=== PATIENT | male | born 1960 | race Caucasian/White ===

== ENCOUNTER 2018-06-02 11:36 | Inpatient (IN) | payer MEDICARE ==
[~2018-06-02] VITALS: Ht 185.4 cm; Wt 140.2 kg
--- NOTE | ~2018-06-02 | D ---
[facility] [address] [place] [address] DISCHARGE SUMMARY Name: ELIANE GARCIA Room: [address] IN ..#: [id number] Admission: 06/02/18 Attend Phys: Kelsie Adrian DO Discharge: 06/29/18 Date of : 62 Report #: [id number] THIS REPORT FOR: //name// CC: Kelsie Adrian Nixon Augustine DATE OF SERVICE: 06/29/2018 DISCHARGE DIAGNOSES: Right foot reconstruction with postoperative wounds and chronic nonhealing acute on chronic wounds with known left below knee amputation. HOSPITAL COURSE: This is a 57-year-old male who was acutely and nonemergently transferred after outpatient wound care appointment with Dr. Mckeon. He will be followed by Dr. Mckeon and Medicine at . Full code status. Fair rehabilitation prognosis. He did make gains during his entire stay here. He did not have plateau. Diabetic diet. Follow with primary care physician, Vascular and Surgery as previously stated. MEDICATIONS: Not reviewed and reconciled by myself prior to his discharge for his appointment and admission to ; however, they are familiar with him. DISCHARGE PHYSICAL EXAMINATION: He did go to his appointment early this morning and was admitted from to their inpatient unit. We will follow with the patient. Should he have further acute inpatient rehabilitation needs, we would be more than happy to take him back once he is medically stable. By: 1430 [id number] Adrian DO /hari
[~2018-06-02 11:36] MED LIST: ACCU-CHEK1 EAC1 MC; ACETAMINOPHEN650 M5; ACTOS 45 MG45 M1 PO; ALBUTEROL2.5 MG/31 INH; ALFALFA650 MG PO; ASPIR 8181 M1 PO; ASPIR-TRIN325 MG PO; ATORVASTATIN CA40 MG PO; AUGMENTIN 875875 MG PO; AZITHROMYCIN 2250 MG PO; B-122500 MC1 PO; BAYER CHEWABLE81 MG PO; BRILINTA90 MG PO; BYETTA; CALCIUM 500 +1 EAC5 PO; CALCIUM 500 WI1 EAC4 PO; CALCIUM 600 +1 EAC1 PO; CEFAZOLIN 1GM VI1 G1; CEPHALEXIN 500500 M2 PO; CIPROFLOXACIN500 M1 PO; CLEOCIN HCL300 MG PO; COLACE100 MG PO; COUMADIN 5 MG TA5 M1 PO; COUMADIN7.5 MG PO; CRANBERRY PLUS1 EACH PO; DIAPER RASH OI113 GM TP; DILANTIN100 MG PO; DOXYCYCLINE 10100 MG PO; ELIQUIS2.5 MG PO; ELIQUIS5 MG PO; ENOXAPARIN30 MG/0.3 SUBQ; FISH OIL 1,001000 M2 PO; GLIPIZIDE ER10 MG PO; GLUCOPHAGE; GLUCOPHAGE500 MG PO; GLUCOTROL5 MG PO; IBUPROFEN 200200 M1 PO; IRON325 PO; KEFLEX500 M1 PO; KEPPRA 500 MG500 M1 PO; LANTUS SUBQ; LANTUS100 UNIT/M SUBQ; LEVAQUIN 500 M500 M2 PO; LEVAQUIN 750 M750 MG PO; LISINOPRIL5 MG PO; METAMUCIL PAC1 UDPK1; MEVACOR40 MG PO; MINOCIN100 MG; MINOCYCLINE HC100 M2 PO; MIRALAX255 GM PO; MULTIVITAMINS PO; NITROGLYCERIN0.4 MG SUBLING; NOVOLOG100 UNIT/1 SQ; OXYCODONE HCL5 M1 PO; PERCOCET 10-321 EACH PO; PIPERACIL-TAZO4.5 GM IV; PREDNISONE 10 M10 MG PO; PREDNISONE 20 M20 MG PO; PROAIR HFA8.5 GM INH; PROBIOTIC1 EAC1 PO; ROCEPHIN 11 GM/1001 IV; SIMVASTATIN40 MG PO; SIMVASTATIN80 MG PO; TAMSULOSIN HCL0.4 M1 PO; ULTRAM 50MG TAB50 MG PO; VIT D3 PO; VITAMINC500 PO; ZESTRIL5 MG PO; ZINC50 M1 PO; ZOFRAN4 MG PO
[2018-06-02 14:47] VITALS: BP 116/68
[2018-06-02] MEDS ORDERED: VITAMIN D1000 UNI1 PO (14:54)
[2018-06-02] MEDS ORDERED: LANTUS SUBQ (15:06)
[2018-06-02] MEDS ORDERED: ENOXAPARIN40 MG/0.1 SUBQ (15:07)
[2018-06-02] MEDS ORDERED: ZINC50 M1 PO (15:28)
[2018-06-02] MEDS ORDERED: NITROGLYCERIN0.4 MG PO (15:31)
[2018-06-02] MEDS ORDERED: ADMELOG100 UNIT/1 SQ (15:33)
[2018-06-02] MEDS ORDERED: OXYCODONE HCL 55 MG PO (15:36)
[2018-06-02] MEDS ORDERED: CLOTRIMAZOLE 1%15 G1 TOP (15:42)
[2018-06-02] MEDS ORDERED: BACTRIM DS TAB1 EACH PO (15:44)
[2018-06-02 21:05] VITALS: BP 93/57
[2018-06-03 05:26] LABS: ABSOLUTE EOSINOPHILS 0.2 thou/uL (0.0-0.7); ABSOLUTE LYMPHOCYTES 1.2 thou/uL (0.8-5.3); ABSOLUTE MONOCYTES 1.1 thou/uL (0.0-1.2); ABSOLUTE NEUTROPHILS 8.2 thou/uL (1.6-8.1); BASOPHILS 0.5 %; EOSINOPHILS 1.6 %; HEMATOCRIT 30.3 % (42.0-52.0); HEMOGLOBIN 10.3 gm/dL (14.0-18.0); LYMPHOCYTES 11.6 %; MCH 30.8 pg (26.0-34.0); MCV 90.6 fL (80.0-100.0); MONOCYTES 9.9 %; MPV 8.6 fl. (7.2-11.1); NUCLEATED RBCS 0 /100WBC; PLATELET COUNT* 413 thou/uL (150-400); POLYS 76.4 %; RBC 3.34 mil/uL (4.50-6.00); RDW-CV 13.7 % (10.5-14.5); WBC 10.7 thou/uL (4.0-11.0)
[2018-06-03 05:42] LABS: INR 1.2; PROTIME 12.1 Seconds (9.20-11.50)
[2018-06-03 05:52] LABS: CREATININE 1.3 mg/dL (0.6-1.3); POTASSIUM 5.2 mmol/L (3.5-5.1)
[2018-06-03 08:00] VITALS: BP 93/49
[2018-06-03 20:00] VITALS: BP 101/38
[2018-06-04 04:31] LABS: CALCIUM 9.7 mg/dL (8.5-10.1); CREATININE 1.3 mg/dL (0.6-1.3); POTASSIUM 5.1 mmol/L (3.5-5.1)
[2018-06-04 04:32] LABS: INR 1.3; PROTIME 13.4 Seconds (9.20-11.50)
[2018-06-04 08:00] VITALS: BP 113/65
[2018-06-04 20:00] VITALS: BP 93/60
[2018-06-05 04:57] LABS: INR 1.2; PROTIME 12.7 Seconds (9.20-11.50)
[2018-06-05 07:30] VITALS: BP 114/45
[2018-06-05 19:19] VITALS: BP 102/67
[2018-06-06 04:06] LABS: HEMOGLOBIN 10.5 gm/dL (14.0-18.0); MCH 29.3 pg (26.0-34.0); MCHC 32.8 g/dL (28.0-37.0); MCV 89.3 fL (80.0-100.0); MPV 8.4 fl. (7.2-11.1); RBC 3.58 mil/uL (4.50-6.00); RDW-CV 13.8 % (10.5-14.5); WBC 9.8 thou/uL (4.0-11.0)
[2018-06-06 04:21] LABS: INR 1.6; PROTIME 15.9 Seconds (9.20-11.50)
[2018-06-06 04:25] LABS: CALCIUM 9.3 mg/dL (8.5-10.1); CREATININE 1.2 mg/dL (0.6-1.3); MAGNESIUM 1.7 mg/dL (1.8-2.4); POTASSIUM 4.8 mmol/L (3.5-5.1)
[2018-06-06 07:58] VITALS: BP 111/57
--- NOTE | 2018-06-06 08:00 | CON ---
[address] [address] CONSULTATION Name: ELIANE GARCIA Room: [address] IN .R.#: [id number] Admission: 06/02/18 Attend Phys: Kelsie Adrian DO Discharge: Date of : 62 Report #: [id number] THIS REPORT FOR: //name// CC: Kelsie Adrian Nixon Augsutine DATE OF SERVICE: 06/05/2018 INFECTIOUS DISEASE CONSULTATION ATTENDING PHYSICIAN: Dr. Kelsie Adrian. REASON FOR EVALUATION AND HISTORY OF PRESENT ILLNESS: Ongoing treatment for complications related to diabetes mellitus. He has had previous left below-knee amputation due to infectious complications, recently had undergone corrective procedure of a Charcot foot with triple arthrodesis and posterior tibial tendon transfer on 05/26/2018. Postoperative course was complicated by a fall requiring repeat due to screw migration and penetration to the tibiotalar joint. He was taken back on 05/31/2018 and after 48 hours, was transitioned to rehab facility. Of note, he has longstanding mid lateral ulcers with suspected chronic osteomyelitis. He has been on chronic suppressive therapy with trimethoprim and sulfamethoxazole. He notes generally, he is not feeling as well. He attributes some in part to the anesthetic with somewhat of a diminished appetite, some poor p.o. intake. He does describe some breathing difficulties with cough productive of some whitish sputum as well. He has been afebrile. ALLERGIES: None known. MEDICATIONS: Currently include folic acid, ondansetron, warfarin, ferrous sulfate, insulin, enoxaparin, senna, docusate, hydrocodone, Lactobacillus, ascorbic acid, cholecalciferol, lisinopril, atorvastatin, fish oil, Bactrim, cyanocobalamin, aspirin, insulin glargine and insulin lispro, levetiracetam, ipratropium and albuterol inhaler, metformin. PAST MEDICAL HISTORY: As noted above, diabetes mellitus with significant complications, below-knee amputation on the left, Charcot changes and has undergone operative repair, history of asthma, hypertension, obstructive sleep apnea, seizure disorder, hyperlipidemia, history of DVTs with PEs. SOCIAL HISTORY: Nonsmoker, no ethanol, no illicit drug use. FAMILY HISTORY: Noncontributory. REVIEW OF SYSTEMS: Otherwise unremarkable 10-point review of systems with the exception as noted [place] [address] CONSULTATION Name: JOSEELIANE L Room: [address]#: [id number] Admission: 06/02/18 Attend Phys: Kelsie Adrian DO Discharge: Date of : 62 Report #: [id number] PHYSICAL EXAMINATION: GENERAL: He appears somewhat chronically ill. He is pleasant and cooperative. He is not as animated as typical, reasonably well nourished. VITAL SIGNS: Temperature 98.7, pulse 77, respirations 18, blood pressure 114/45. SKIN: Warm, dry, no rashes. HEENT: Extraocular muscles intact. Oropharynx is without lesion. NECK: Supple. LUNGS: Diminished breath sounds, otherwise clear. HEART: Regular. I do not appreciate any murmur. ABDOMEN: Soft, obese, nontender. There are no peritoneal signs. EXTREMITIES: [id number] prosthesis on the left. Right has a surgical dressing that apparently has been there since 05/31/2018. GENITOURINARY: Deferred. RECTAL: Deferred. LABORATORY DATA: Chest x-ray showed lung volumes to be diminished and left lower lung atelectasis. TSH of 1.083. Electrolytes: Sodium 134, potassium 5.1, chloride 96, bicarbonate is 31, anion gap of 7, BUN and creatinine 35 and 1.3, glucose of 250. Estimated GFR of 57. CBC: White count of 10.7, H and H 10.3 and 30.3, platelets of 413. ASSESSMENT: Diabetes mellitus complicated by peripheral neuropathy, Charcot changes with recent corrective surgery. We will not be able to see the foot at this point. It is not certain whether the wounds were debrided. At some point, I would be able to evaluate. Discussed with Dr. Beavers, orthopedic surgeon. At this point, we will not disrupt the surgical dressing. We will have to monitor expectantly, certainly at risk for nosocomial related infectious complications. <ELECTRONICALLY SIGNED> By: Med Lopez MD 06/06/18 0800 1206 [id number] Lopez MD /nt
[2018-06-06 20:17] VITALS: BP 124/48
[2018-06-07 04:54] LABS: PROTIME 20.4 Seconds (9.20-11.50)
[2018-06-07 07:30] VITALS: BP 111/69
[2018-06-07] MEDS ORDERED: COUMADIN 4 MG TA4 M1 PO (11:13)
[2018-06-07 20:18] VITALS: BP 109/68
[2018-06-08 04:31] LABS: INR 2.4; PROTIME 24.4 Seconds (9.20-11.50)
[2018-06-08 04:38] LABS: CALCIUM 9.1 mg/dL (8.5-10.1); MAGNESIUM 1.9 mg/dL (1.8-2.4); POTASSIUM 5.3 mmol/L (3.5-5.1)
[2018-06-08 20:09] VITALS: BP 88/54
[2018-06-08 21:39] VITALS: BP 94/53
[2018-06-09 11:00] VITALS: BP 135/61
[2018-06-09 20:00] VITALS: BP 117/67
[2018-06-10 04:19] LABS: PROTIME 30.7 Seconds (9.20-11.50)
[2018-06-10 08:12] VITALS: BP 121/65
[2018-06-10 19:07] VITALS: BP 121/67
[2018-06-11 05:01] LABS: HEMATOCRIT 30.8 % (42.0-52.0); HEMOGLOBIN 10.2 gm/dL (14.0-18.0); MCH 29.1 pg (26.0-34.0); MCHC 33.1 g/dL (28.0-37.0); MCV 87.7 fL (80.0-100.0); MPV 8.3 fl. (7.2-11.1); RBC 3.51 mil/uL (4.50-6.00); RDW-CV 14.3 % (10.5-14.5)
[2018-06-11 05:14] LABS: INR 3.2; PROTIME 32.6 Seconds (9.20-11.50)
[2018-06-11 05:15] LABS: CALCIUM 8.6 mg/dL (8.5-10.1); CREATININE 0.9 mg/dL (0.6-1.3)
[2018-06-11 08:13] VITALS: BP 126/57
[2018-06-11 08:15] VITALS: BP 126/57
[2018-06-11 20:00] VITALS: BP 109/67
[2018-06-12 04:37] LABS: INR 3.1; PROTIME 31.5 Seconds (9.20-11.50)
[2018-06-12 08:00] VITALS: BP 117/61
[2018-06-12 20:30] VITALS: BP 121/55
[2018-06-13 03:55] LABS: INR 2.6; PROTIME 26.1 Seconds (9.20-11.50)
[2018-06-13 08:00] VITALS: BP 111/69
[2018-06-13 20:00] VITALS: BP 114/51
[2018-06-14 04:22] LABS: INR 2.7; PROTIME 27.7 Seconds (9.20-11.50)
[2018-06-14 08:00] VITALS: BP 118/60
[2018-06-14 20:00] VITALS: BP 91/44
[2018-06-15 04:34] LABS: INR 2.7; PROTIME 27.9 Seconds (9.20-11.50)
[2018-06-15 04:37] LABS: HEMATOCRIT 30.1 % (42.0-52.0); HEMOGLOBIN 10.3 gm/dL (14.0-18.0); MCHC 34.1 g/dL (28.0-37.0); MPV 8.4 fl. (7.2-11.1); RBC 3.42 mil/uL (4.50-6.00); RDW-CV 14.4 % (10.5-14.5); WBC 7.8 thou/uL (4.0-11.0)
[2018-06-15 04:38] LABS: CALCIUM 8.8 mg/dL (8.5-10.1); POTASSIUM 4.4 mmol/L (3.5-5.1)
[2018-06-15 08:00] VITALS: BP 110/69
[2018-06-15 20:00] VITALS: BP 112/63
[2018-06-16 04:15] LABS: INR 2.9; PROTIME 29.6 Seconds (9.20-11.50)
[2018-06-16 08:29] VITALS: BP 114/56
[2018-06-16 20:08] VITALS: BP 121/63
[2018-06-17 04:30] LABS: INR 2.7; PROTIME 27.7 Seconds (9.20-11.50)
[2018-06-17 07:00] VITALS: BP 131/58
[2018-06-17 07:57] VITALS: BP 131/58
[2018-06-17 20:00] VITALS: BP 118/76
[2018-06-18 08:00] VITALS: BP 132/80
[2018-06-18 20:00] VITALS: BP 116/59
[2018-06-19 08:30] VITALS: BP 144/72
[2018-06-19 20:00] VITALS: BP 115/63
[2018-06-20 07:45] VITALS: BP 142/80
[2018-06-20 20:00] VITALS: BP 116/68
[2018-06-21 04:27] LABS: HEMATOCRIT 29.4 % (42.0-52.0); HEMOGLOBIN 9.9 gm/dL (14.0-18.0); MCH 29.5 pg (26.0-34.0); MCHC 33.7 g/dL (28.0-37.0); MCV 87.5 fL (80.0-100.0); MPV 8.2 fl. (7.2-11.1); RBC 3.36 mil/uL (4.50-6.00); RDW-CV 14.4 % (10.5-14.5); WBC 6.7 thou/uL (4.0-11.0)
[2018-06-21 04:35] LABS: INR 2.1; PROTIME 21.2 Seconds (9.20-11.50)
[2018-06-21 04:37] LABS: CALCIUM 8.5 mg/dL (8.5-10.1); MAGNESIUM 1.6 mg/dL (1.8-2.4)
[2018-06-21 08:26] VITALS: BP 126/69
[2018-06-21 19:55] VITALS: BP 99/60
[2018-06-22 07:59] VITALS: BP 128/73
[2018-06-22 17:08] VITALS: BP 128/73
[2018-06-22 20:17] VITALS: BP 106/63
[2018-06-22 20:32] VITALS: BP 100/58
[2018-06-23 07:00] VITALS: BP 131/70
[2018-06-23 07:54] VITALS: BP 131/70
[2018-06-23 08:22] LABS: PROTIME 20.4 Seconds (9.20-11.50)
[2018-06-23 20:15] VITALS: BP 108/54
[2018-06-24 07:30] VITALS: BP 119/51
[2018-06-24 20:00] VITALS: BP 126/60
[2018-06-25 08:30] VITALS: BP 139/77
[2018-06-25 20:00] VITALS: BP 144/75
[2018-06-26 06:55] LABS: HEMATOCRIT 28.7 % (42.0-52.0); HEMOGLOBIN 9.3 gm/dL (14.0-18.0); MCH 28.4 pg (26.0-34.0); MCHC 32.4 g/dL (28.0-37.0); MCV 87.5 fL (80.0-100.0); RBC 3.28 mil/uL (4.50-6.00); RDW-CV 15.2 % (10.5-14.5); WBC 5.9 thou/uL (4.0-11.0)
[2018-06-26 07:00] LABS: CALCIUM 8.9 mg/dL (8.5-10.1); CREATININE 1.5 mg/dL (0.6-1.3); MAGNESIUM 1.6 mg/dL (1.8-2.4); POTASSIUM 4.1 mmol/L (3.5-5.1)
[2018-06-26 07:02] LABS: PROTIME 20.4 Seconds (9.20-11.50)
[2018-06-26 08:00] VITALS: BP 154/83
[2018-06-26 20:00] VITALS: BP 132/63
[2018-06-27 04:56] LABS: PROTIME 20.8 Seconds (9.20-11.50)
[2018-06-27 05:49] LABS: CALCIUM 8.8 mg/dL (8.5-10.1); CREATININE 1.6 mg/dL (0.6-1.3); MAGNESIUM 1.6 mg/dL (1.8-2.4); POTASSIUM 3.9 mmol/L (3.5-5.1)
[2018-06-27 07:57] VITALS: BP 154/76
[2018-06-27 21:18] VITALS: BP 136/77
[2018-06-28 06:07] LABS: HEMATOCRIT 30.4 % (42.0-52.0); HEMOGLOBIN 9.7 gm/dL (14.0-18.0); MCH 27.8 pg (26.0-34.0); MCHC 31.9 g/dL (28.0-37.0); MPV 8.3 fl. (7.2-11.1); RBC 3.5 mil/uL (4.50-6.00); RDW-CV 14.8 % (10.5-14.5); WBC 5.9 thou/uL (4.0-11.0)
[2018-06-28 06:46] LABS: ALBUMIN 2.1 g/dL (3.4-5.0); CALCIUM 8.7 mg/dL (8.5-10.1); CREATININE 1.6 mg/dL (0.6-1.3); MAGNESIUM 1.7 mg/dL (1.8-2.4); POTASSIUM 4.3 mmol/L (3.5-5.1); TOTAL BILIRUBIN 0.3 mg/dL (<0.1-1.0); TOTAL PROTEIN 6.8 g/dL (6.4-8.2)
[2018-06-28 09:18] VITALS: BP 133/72
--- NOTE | 2018-06-28 14:18 | H ---
[address] [address] HISTORY AND PHYSICAL Name: ELIANE GARCIA Room: [address] IN ..#: [id number] Admission: 06/02/18 Attend Phys: Kelsie Adrian DO Discharge: Date of : 62 Report #: [id number] THIS REPORT FOR: //name// CC: Kelsie Dominguezew Augustine DATE OF SERVICE: 06/02/2018 [facility] CODE: 8.9. HISTORY OF PRESENT ILLNESS: This is a 57-year-old male known to this service from previous admission in 2013 with a history of uncontrolled diabetes with a random glucose of 265, who presented [facility] on 05/26/2018 for right foot surgical intervention for Charcot foot, right triple arthrodesis and posterior tendon transfer. He was discharged home on 05/28/2018, nonweightbearing on right lower extremity. On 05/29/2018, he presented back to the ER at [facility] post fall at home where he landed on his right surgical foot. X-ray showed slight screw migration and penetration into the tibiotalar. He was then taken back to the OR on 05/31/2018. He is currently medically stable, nonweightbearing on the right lower extremity. He does have prosthesis for the left BKA. No changes since the preadmission screening. Previous level of function was modified independent to independent with activities of daily living. Current level of function is minimum assistance of 1-2 to maximum assistance depending on therapy, activity and time of day. Comprehension, memory and social interaction are within functional limits. Estimated length of stay is 12-14 days with discharge disposition to the home setting where he does have a and accessible house, but his is unable to help with transfers due to her medical complications and issues. PAST MEDICAL HISTORY: Hypertension, hyperlipidemia, coronary artery disease, history of PE, DVT, uncontrolled diabetes, insulin-dependency, diabetic peripheral neuropathy, morbid obesity, right Charcot foot status post surgical intervention x 2, left BKA with prosthesis, seizures, debility, falls, anemia with a hemoglobin of 10.6, chronic anticoagulation, constipation, diabetic lower extremity ulcers, asthma, on BiPAP, O2 dependency 4 liters at night. PAST SURGICAL HISTORY: Left BKA, tonsillectomy, lap-band, coronary stent, and a foot surgery bilaterally and most recently right lower extremity x 2. MEDICATIONS: Reviewed and reconciled by myself and are available in the MAR. ALLERGIES: No known drug allergies. SOCIAL HISTORY: No tobacco, alcohol or illicit drug use. FAMILY HISTORY: [place] [address] HISTORY AND PHYSICAL Name: JOSEELIANE L Room: [address] IN [facility].#: [id number] Admission: 06/02/18 Attend Phys: Kelsie Adrian DO Discharge: Date of : 62 Report #: [id number] REVIEW OF SYSTEMS: A 14-point review of systems is done today, is negative except as mentioned in HPI, specifically no fever, chest pain, shortness of breath, abdominal pain or distention, change in bowel or change in bladder. PHYSICAL EXAMINATION: GENERAL: Alert, oriented, no apparent distress. VITAL SIGNS: Reviewed and are stable. HEENT: Head atraumatic, normocephalic. Pupils equal, round, reactive. O2 per nasal cannula is in place. NECK: Supple. HEART: Regular. ABDOMEN: Obese. LOWER EXTREMITY AND MUSCULOSKELETAL: Left BKA is intact. Right lower extremity, right Charcot foot. Surgical foot is freshly wrapped with an Bhaskar bandage in place. Wound was not visualized at this time. SKIN: Warm and dry. No rashes or lesions noted. PSYCHIATRIC: Appropriate mood and affect. ASSESSMENT: 1. Status post surgical intervention for reconstruction of the right lower extremity x 2 on 05/26/2018 and 05/31/2018 with nonweightbearing status. 2. Left below knee amputation from [address]. 3. Multiple medical comorbidities including uncontrolled diabetes with multiple complications including neuropathy. PLAN: 1. Admission to inpatient rehabilitation. 2. PT, OT, case management, nursing and HIMS to make evaluations and recommendations. 3. Plan of care is pending. 4. We will team weekly. 5. Medications were reviewed, pain controlled. 6. Trapeze has been ordered for his hospital bed. 7. Goals were reviewed with the patient, team weekly on Tuesday. <ELECTRONICALLY SIGNED> By: Kelsie Adrian DO 06/28/18 1418 0735 1000Kelnnamdi Adrian DO /nt
--- NOTE | 2018-06-28 14:18 | PLAN ---
[address] [address] REHAB UNIT PLAN OF CARE Name: ELIANE GARCIA Room: [address] IN [facility].#: [id number] Admission: 06/02/18 Attend Phys: Kelsie Adrian DO Discharge: Date of : 62 Report #: [id number] THIS REPORT FOR: //name// CC: Kelsie Bradshaw SUBJECTIVE: This is a 57-year-old male admitted to inpatient rehabilitation to facilitate safe discharge home, status post surgical intervention on 05/26/2018 and a revision on 05/31/2018 for right Charcot foot with triple arthrodesis and posterior tendon transfer. He also has a left BKA. He has a prosthetic in place. He is nonweightbearing on the right lower extremity. MEDICAL PROGNOSIS: Good. REHABILITATION PROGNOSIS: Good. Estimated length of stay is 12-14 days with discharge disposition to the home setting where he has supportive family, although she cannot help with transfers and an accessible house. Previous level of function was modified independent to independent with activities of daily living. Current level of function is minimum to moderate assistance of 1-2 to maximum assistance depending on therapy, activity and time of day. Comprehension, expression, social interaction are within functional limits. Physical therapy will see the patient 60-90 minutes per day, 5 days per week, working on upper and lower body strength, balance, coordination, navigation with nonweightbearing on the right lower extremity and BKA on the left with or without the prosthesis. Occupational therapy will see the patient 60-90 minutes per day, 5 days per week, working on upper and lower body strength, balance, coordination, navigation, bathing, dressing, and toileting while maintaining nonweightbearing on the right lower extremity and prosthetic with or without on the left lower extremity. This is an overall plan of care, may change from time to time. We will team him weekly and make changes to plan of care as needed. <ELECTRONICALLY SIGNED> By: Kelsie Adrian DO 06/28/18 1418 0737 [id number] Adrian DO /nt
[2018-06-28 19:52] VITALS: BP 128/68
[2018-06-29 06:45] VITALS: BP 157/68
[2018-06-29 08:28] LABS: HEMATOCRIT 30.5 % (42.0-52.0); HEMOGLOBIN 9.9 gm/dL (14.0-18.0); MCH 28.3 pg (26.0-34.0); MCHC 32.6 g/dL (28.0-37.0); MCV 86.7 fL (80.0-100.0); MPV 8.7 fl. (7.2-11.1); RBC 3.51 mil/uL (4.50-6.00); RDW-CV 14.9 % (10.5-14.5); WBC 6.4 thou/uL (4.0-11.0)
[2018-06-29 08:33] LABS: CALCIUM 8.9 mg/dL (8.5-10.1); CREATININE 1.4 mg/dL (0.6-1.3); MAGNESIUM 1.6 mg/dL (1.8-2.4); POTASSIUM 3.9 mmol/L (3.5-5.1)
== END 2018-06-29 12:56 | disposition short-term general hospital (02) | DRG 638 ==
LOC: M.REH 11:36
PROVIDERS: Family Medicine; Internal Medicine; ADMIT Physical Medicine & Rehabilitation
PROC: 5A09357 Assistance with Respiratory Ventilation, Less than 24 Consecutive Hours, Continuous Positive Airway Pressure (ICD-10-PCS; principal; 2018-06-02)
PROC: 5A09357 Assistance with Respiratory Ventilation, Less than 24 Consecutive Hours, Continuous Positive Airway Pressure (ICD-10-PCS; 2018-06-03)
PROC: 5A09357 Assistance with Respiratory Ventilation, Less than 24 Consecutive Hours, Continuous Positive Airway Pressure (ICD-10-PCS; 2018-06-07)
PROC: 5A09357 Assistance with Respiratory Ventilation, Less than 24 Consecutive Hours, Continuous Positive Airway Pressure (ICD-10-PCS; 2018-06-08)
PROC: 5A09357 Assistance with Respiratory Ventilation, Less than 24 Consecutive Hours, Continuous Positive Airway Pressure (ICD-10-PCS; 2018-06-10)
PROC: 5A09357 Assistance with Respiratory Ventilation, Less than 24 Consecutive Hours, Continuous Positive Airway Pressure (ICD-10-PCS; 2018-06-11)
PROC: 5A09357 Assistance with Respiratory Ventilation, Less than 24 Consecutive Hours, Continuous Positive Airway Pressure (ICD-10-PCS; 2018-06-12)
PROC: 5A09357 Assistance with Respiratory Ventilation, Less than 24 Consecutive Hours, Continuous Positive Airway Pressure (ICD-10-PCS; 2018-06-13)
PROC: 5A09357 Assistance with Respiratory Ventilation, Less than 24 Consecutive Hours, Continuous Positive Airway Pressure (ICD-10-PCS; 2018-06-14)
PROC: 5A09357 Assistance with Respiratory Ventilation, Less than 24 Consecutive Hours, Continuous Positive Airway Pressure (ICD-10-PCS; 2018-06-17)
PROC: 5A09357 Assistance with Respiratory Ventilation, Less than 24 Consecutive Hours, Continuous Positive Airway Pressure (ICD-10-PCS; 2018-06-18)
PROC: 5A09357 Assistance with Respiratory Ventilation, Less than 24 Consecutive Hours, Continuous Positive Airway Pressure (ICD-10-PCS; 2018-06-27)
DX: E11.628 Type 2 diabetes mellitus with other skin complications (principal); J96.10 Chronic respiratory failure, unspecified whether with hypoxia or hypercapnia; M86.671 Other chronic osteomyelitis, right ankle and foot; R53.81 Other malaise; N17.9 Acute kidney failure, unspecified; Z89.512 Acquired absence of left leg below knee; I10 Essential (primary) hypertension; E78.5 Hyperlipidemia, unspecified; I25.10 Atherosclerotic heart disease of native coronary artery without angina pectoris; E11.42 Type 2 diabetes mellitus with diabetic polyneuropathy; E66.01 Morbid (severe) obesity due to excess calories; G40.909 Epilepsy, unspecified, not intractable, without status epilepticus; J44.9 Chronic obstructive pulmonary disease, unspecified; G47.33 Obstructive sleep apnea (adult) (pediatric); D50.9 Iron deficiency anemia, unspecified; D63.8 Anemia in other chronic diseases classified elsewhere; D52.9 Folate deficiency anemia, unspecified; E11.610 Type 2 diabetes mellitus with diabetic neuropathic arthropathy; K59.00 Constipation, unspecified; E83.42 Hypomagnesemia; E11.69 Type 2 diabetes mellitus with other specified complication; L97.519 Non-pressure chronic ulcer of other part of right foot with unspecified severity; E11.621 Type 2 diabetes mellitus with foot ulcer; Z86.711 Personal history of pulmonary embolism; Z86.718 Personal history of other venous thrombosis and embolism; Z79.01 Long term (current) use of anticoagulants; Z99.81 Dependence on supplemental oxygen; Z95.5 Presence of coronary angioplasty implant and graft; Z82.49 Family history of ischemic heart disease and other diseases of the circulatory system; Z83.3 Family history of diabetes mellitus; Z79.899 Other long term (current) drug therapy; Z79.82 Long term (current) use of aspirin; Z79.4 Long term (current) use of insulin; Z79.84 Long term (current) use of oral hypoglycemic drugs; Z91.81 History of falling

== ENCOUNTER 2018-09-15 00:38 | Emergency (ER) | payer MEDICARE ==
[~2018-09-15] VITALS: Ht 185.4 cm; Wt 133.8 kg
[~2018-09-15 00:38] MED LIST changes: -AMOXICILLIN 50500 MG PO
[2018-09-15] MEDS ORDERED: AMOXICILLIN 50500 MG PO (00:53)
[2018-09-15 01:01] LABS: INR 1.2
[2018-09-15 01:31] VITALS: BP 110/59
== END 2018-09-15 01:31 | disposition home or self-care (01) ==
LOC: M.ERS 00:38
PROVIDERS: Emergency Medicine Emergency Medical Services
DX: S91.301A Unspecified open wound, right foot, initial encounter (principal); X58.XXXA Exposure to other specified factors, initial encounter; Y93.89 Activity, other specified; Y92.89 Other specified places as the place of occurrence of the external cause; Y99.8 Other external cause status; E11.9 Type 2 diabetes mellitus without complications; E78.5 Hyperlipidemia, unspecified; I10 Essential (primary) hypertension; J45.909 Unspecified asthma, uncomplicated; G47.33 Obstructive sleep apnea (adult) (pediatric); I25.10 Atherosclerotic heart disease of native coronary artery without angina pectoris; Z99.81 Dependence on supplemental oxygen

== ENCOUNTER → 2018-09-15 | Outpatient (CLI) | payer MEDICARE ==
[~2018-09-15] MED LIST changes: +ADMELOG100 UNIT/1 SQ; +AMOXICILLIN 50500 MG PO; +BACTRIM DS TAB1 EACH PO; +CLOTRIMAZOLE 1%15 G1 TOP; +COUMADIN 4 MG TA4 M1 PO; +ENOXAPARIN40 MG/0.1 SUBQ; +NITROGLYCERIN0.4 MG PO; +OXYCODONE HCL 55 MG PO; +VITAMIN D1000 UNI1 PO
[2018-09-15 11:29] LABS: HEMATOCRIT 32.5 % (42.0-52.0); HEMOGLOBIN 10.5 gm/dL (14.0-18.0); MCH 26.2 pg (26.0-34.0); MCHC 32.2 g/dL (28.0-37.0); MCV 81.4 fL (80.0-100.0); MPV 8.1 fl. (7.2-11.1); RBC 3.99 mil/uL (4.50-6.00); RDW-CV 17.4 % (10.5-14.5); WBC 6.2 thou/uL (4.0-11.0)
[2018-09-15 11:39] LABS: ALBUMIN 2.7 g/dL (3.4-5.0); CALCIUM 9.7 mg/dL (8.5-10.1); POTASSIUM 4.7 mmol/L (3.5-5.1); TOTAL BILIRUBIN 0.2 mg/dL (<0.1-1.0); TOTAL PROTEIN 7.9 g/dL (6.4-8.2)
[2018-09-15 22:09] LABS: GLYCOHEMOGLOBIN (HGB A1C) 7.7 % (4.8-5.6)
== END ==
LOC: M.WC 10:00
PROVIDERS: Family Medicine
DX: T81.89XD Other complications of procedures, not elsewhere classified, subsequent encounter (principal); E11.621 Type 2 diabetes mellitus with foot ulcer; L97.512 Non-pressure chronic ulcer of other part of right foot with fat layer exposed; E11.51 Type 2 diabetes mellitus with diabetic peripheral angiopathy without gangrene; G47.30 Sleep apnea, unspecified; J45.909 Unspecified asthma, uncomplicated; Z79.82 Long term (current) use of aspirin; Z89.512 Acquired absence of left leg below knee; Z95.5 Presence of coronary angioplasty implant and graft; Z86.711 Personal history of pulmonary embolism; Y83.8 Other surgical procedures as the cause of abnormal reaction of the patient, or of later complication, without mention of misadventure at the time of the procedure

== ENCOUNTER → 2018-09-22 | Outpatient (CLI) | payer MEDICARE ==
[~2018-09-22] MED LIST changes: +AMOXICILLIN 50500 MG PO
== END ==
LOC: M.WC 06:57
DX: T81.89XD Other complications of procedures, not elsewhere classified, subsequent encounter (principal); E11.621 Type 2 diabetes mellitus with foot ulcer; L97.516 Non-pressure chronic ulcer of other part of right foot with bone involvement without evidence of necrosis; E11.42 Type 2 diabetes mellitus with diabetic polyneuropathy; E11.51 Type 2 diabetes mellitus with diabetic peripheral angiopathy without gangrene; E66.9 Obesity, unspecified; G47.30 Sleep apnea, unspecified; J45.909 Unspecified asthma, uncomplicated; Z89.512 Acquired absence of left leg below knee; Z95.5 Presence of coronary angioplasty implant and graft; Z86.711 Personal history of pulmonary embolism; Z68.38 Body mass index [BMI] 38.0-38.9, adult; Y83.8 Other surgical procedures as the cause of abnormal reaction of the patient, or of later complication, without mention of misadventure at the time of the procedure

== ENCOUNTER → 2018-09-29 | Outpatient (CLI) | payer MEDICARE | LOC: M.WC 05:00 | DX: T81.89XD Other complications of procedures, not elsewhere classified, subsequent encounter (principal); E11.621 Type 2 diabetes mellitus with foot ulcer; L97.512 Non-pressure chronic ulcer of other part of right foot with fat layer exposed; E11.51 Type 2 diabetes mellitus with diabetic peripheral angiopathy without gangrene; G47.30 Sleep apnea, unspecified; J45.909 Unspecified asthma, uncomplicated; Z89.512 Acquired absence of left leg below knee; Z95.5 Presence of coronary angioplasty implant and graft; Z86.711 Personal history of pulmonary embolism; Y83.8 Other surgical procedures as the cause of abnormal reaction of the patient, or of later complication, without mention of misadventure at the time of the procedure ==

== ENCOUNTER → 2018-10-06 | Outpatient (CLI) | payer MEDICARE | LOC: M.WC 00:39 | DX: T81.89XD Other complications of procedures, not elsewhere classified, subsequent encounter (principal); E11.621 Type 2 diabetes mellitus with foot ulcer; L97.511 Non-pressure chronic ulcer of other part of right foot limited to breakdown of skin; L84 Corns and callosities; E11.51 Type 2 diabetes mellitus with diabetic peripheral angiopathy without gangrene; G47.30 Sleep apnea, unspecified; J45.909 Unspecified asthma, uncomplicated; Z89.511 Acquired absence of right leg below knee; Z95.5 Presence of coronary angioplasty implant and graft; Z86.711 Personal history of pulmonary embolism; Y83.8 Other surgical procedures as the cause of abnormal reaction of the patient, or of later complication, without mention of misadventure at the time of the procedure ==

== ENCOUNTER → 2018-10-13 | Outpatient (CLI) | payer MEDICARE | LOC: M.WC 05:10 | DX: T81.89XD Other complications of procedures, not elsewhere classified, subsequent encounter (principal); E11.621 Type 2 diabetes mellitus with foot ulcer; L97.518 Non-pressure chronic ulcer of other part of right foot with other specified severity; E11.51 Type 2 diabetes mellitus with diabetic peripheral angiopathy without gangrene; E66.9 Obesity, unspecified; G47.30 Sleep apnea, unspecified; J45.909 Unspecified asthma, uncomplicated; Z68.38 Body mass index [BMI] 38.0-38.9, adult; Z95.5 Presence of coronary angioplasty implant and graft; Z89.512 Acquired absence of left leg below knee; Z86.711 Personal history of pulmonary embolism; Y83.8 Other surgical procedures as the cause of abnormal reaction of the patient, or of later complication, without mention of misadventure at the time of the procedure ==

== ENCOUNTER → 2018-10-18 | Outpatient (CLI) | payer MEDICARE ==
--- NOTE | 2018-10-18 12:36 | 2DMMODE ---
[place] [address] 2 D/M-MODE ECHOCARDIOGRAM Name: ELIANE GARCIA Room: [facility]#: [id number] Admission: 10/18/18 Attend Phys: Marylu Sepulveda Discharge: Date of : 62 Date of Service: 10/18/18 1235 Report #: [id number] THIS REPORT FOR: //name// APPROVED REPORT Study performed: 10/18/2018 11:36:00 EXAM: Comprehensive 2D, Doppler, and color-flow Echocardiogram Patient Location: Out-Patient Status: routine BSA: 2.56 HR: 65 bpm BP: 108/67 mmHg Rhythm: NSR Other Information Study Quality: Good Indications CAD 2D Dimensions IVSd: 13.32 (7-11mm) LVOT Diam: 23.80 (18-24mm) LVDd: 48.60 mm PWd: 13.73 (7-11mm) Ascending Ao: 36.37 (22-36mm) LVDs: 33.69 (25-40mm) Aortic Root: 33.62 mm Volumes Left Atrial Volume (Systole) LA ESV Index: 33.40 mL/m2 Aortic Valve AoV Peak Alverto.: 1.39 m/s AO Peak Gr.: 7.70 mmHg LVOT Max P.22 mmHg AO Mean Gr.: 4.84 mmHg LVOT Mean P.65 mmHg LVOT Max V: 0.90 m/s AO V2 VTI: 30.47 cm LVOT Mean V: 0.59 m/s GUERA (VTI): 3.26 cm2 LVOT V1 VTI: 22.33 cm Mitral Valve MV Mean Gr.: 1.96 mmHg E/A Ratio: 0.96 MV Decel. Time: 276.81 ms MV E Max Alverto.: 0.97 m/[place] [address] 2 D/M-MODE ECHOCARDIOGRAM Name: ELIANE GARCIA Room: [facility]#: [id number] Admission: 10/18/18 Attend Phys: Marylu Sepulveda Discharge: Date of : 62 Date of Service: 10/18/18 1235 Report #: [id number] MV PHT: 80.27 ms MVA (PHT): 2.74 cm2 TDI E/Lateral E': 10.78 E/Medial E': 12.13 Medial E' Alverto.: 0.08 m/s Lateral E' Alverto.: 0.09 m/s Pulmonary Valve PV Peak Alverto.: 1.17 m/s PV Peak Gr.: 5.45 mmHg Tricuspid Valve RAP Estimate: 5.00 mmHg TR Peak Gr.: 20.34 mmHg RVSP: 25.00 mmHg PA Pressure: 25.00 mmHg Left Ventricle The left ventricle is normal size. There is normal LV segmental wall motion. There is normal left ventricular wall thickness. Left ventricular systolic function is normal. The left ventricular ejection fraction is within the normal range. LVEF is 60%. The left ventricular diastolic function is normal. Right Ventricle The right ventricle is normal size. The right ventricular systolic function is normal. Atria The left atrium size is normal. The right atrium size is normal. Aortic Valve Mild aortic valve sclerosis. No aortic regurgitation is present. There is no aortic valvular stenosis. Mitral Valve There is mitral annular calcification. Trace mitral regurgitation. No evidence of mitral valve stenosis. Tricuspid Valve The tricuspid valve is normal in structure. Mild tricuspid regurgitation. No pulmonary hypertension. Pulmonic Valve The pulmonary valve is normal in structure. There is no pulmonic [place]vular [place] [address] 2 D/M-MODE ECHOCARDIOGRAM Name: ELIANE GARCIA Room: [facility]#: [id number] Admission: 10/18/18 Attend Phys: Marylu Sepulveda Discharge: Date of : 62 Date of Service: 10/18/18 1235 Report #: [id number] Great Vessels The aortic root is normal in size. IVC is normal in size and collapses >50% with inspiration. Pericardium There is no pericardial effusion. <Conclusion> The left ventricle is normal size. There is normal left ventricular wall thickness. Left ventricular systolic function is normal. The left ventricular ejection fraction is within the normal range. LVEF is 60%. The right ventricle is normal size. The left atrium size is normal. Mild aortic valve sclerosis. No aortic regurgitation is present. There is no aortic valvular stenosis. There is mitral annular calcification. Trace mitral regurgitation. No evidence of mitral valve stenosis. The tricuspid valve is normal in structure. IVC is normal in size and collapses >50% with inspiration. There is no pericardial effusion. There is normal LV segmental wall motion. <ELECTRONICALLY SIGNED> By: Augustine Wolf MD, FACC 10/18/18 1235 1235 1235 Augustine Wolf MD, FACC /INF
== END ==
LOC: M.CRD 11:00
DX: I08.3 Combined rheumatic disorders of mitral, aortic and tricuspid valves (principal); I25.10 Atherosclerotic heart disease of native coronary artery without angina pectoris

== ENCOUNTER 2019-10-23 18:42 | Emergency (ER) | payer MEDICARE ==
[~2019-10-23] VITALS: Ht 185.4 cm; Wt 150.1 kg
[2019-10-23 19:28] LABS: ABSOLUTE EOSINOPHILS 0.2 thou/uL (0.0-0.7); ABSOLUTE LYMPHOCYTES 1.1 thou/uL (0.8-5.3); ABSOLUTE MONOCYTES 0.8 thou/uL (0.0-1.2); ABSOLUTE NEUTROPHILS 7.7 thou/uL (1.6-8.1); BASOPHILS 0.4 %; EOSINOPHILS 1.9 %; HEMATOCRIT 36.7 % (42.0-52.0); HEMOGLOBIN 12.6 gm/dL (14.0-18.0); LYMPHOCYTES 11.3 %; MCH 28.8 pg (26.0-34.0); MCHC 34.2 g/dL (28.0-37.0); MCV 84.2 fL (80.0-100.0); MONOCYTES 7.9 %; NUCLEATED RBCS 0 /100WBC; PLATELET COUNT* 271 thou/uL (150-400); POLYS 78.5 %; RBC 4.36 mil/uL (4.50-6.00); RDW-CV 17.8 % (10.5-14.5); WBC 9.9 thou/uL (4.0-11.0)
[2019-10-23 19:36] LABS: CALCIUM 8.4 mg/dL (8.5-10.1); CREATININE 1.3 mg/dL (0.6-1.3); POTASSIUM 3.8 mmol/L (3.5-5.1)
[2019-10-23 19:41] LABS: ALBUMIN 3.4 g/dL (3.4-5.0); MAGNESIUM 1.3 mg/dL (1.8-2.4); TOTAL BILIRUBIN 0.4 mg/dL (<0.1-1.0); TOTAL PROTEIN 7.8 g/dL (6.4-8.2)
[2019-10-23 20:08] LABS: BE -3.5 mmol/L (-2 to +3); PCO2 VENOUS 33.7 mmHg (41.0-51.0); PO2 VENOUS 95.9 mmHg (35.0-45.0)
[2019-10-23 21:48] LABS: URINE BILIRUBIN NEGATIVE (Negative); URINE BLOOD NEGATIVE (Negative); URINE CLARITY CLEAR; URINE COLOR YELLOW; URINE GLUCOSE-RANDOM NEGATIVE (Negative); URINE KETONES NEGATIVE (Negative); URINE LEUKOCYTES-REFLEX NEGATIVE (Negative); URINE NITRITE-REFLEX NEGATIVE (Negative); URINE PROTEIN NEGATIVE (Negative); URINE SPECIFIC GRAVITY 1.025 (1.005-1.030); URINE UROBILINOGEN 0.2 E.U./dl (0.2-1.0)
[2019-10-24 01:46] VITALS: BP 108/56
== END 2019-10-24 01:48 | disposition home or self-care (01) ==
LOC: M.ERS 18:42
PROVIDERS: Emergency Medicine; Personal Emergency Response Attendant
DX: E11.649 Type 2 diabetes mellitus with hypoglycemia without coma (principal); E78.5 Hyperlipidemia, unspecified; I10 Essential (primary) hypertension; G47.33 Obstructive sleep apnea (adult) (pediatric); I25.10 Atherosclerotic heart disease of native coronary artery without angina pectoris; Z86.718 Personal history of other venous thrombosis and embolism; Z86.711 Personal history of pulmonary embolism; Z79.4 Long term (current) use of insulin

== ENCOUNTER 2019-10-31 01:24 | Emergency (ER) | payer MEDICARE ==
[~2019-10-31] VITALS: Ht 185.4 cm; Wt 145.2 kg
[2019-10-31 02:01] LABS: ABSOLUTE BASOPHILS 0.1 thou/uL (0.0-0.2); ABSOLUTE EOSINOPHILS 0.3 thou/uL (0.0-0.7); ABSOLUTE LYMPHOCYTES 1.8 thou/uL (0.8-5.3); ABSOLUTE MONOCYTES 0.7 thou/uL (0.0-1.2); BASOPHILS 0.9 %; EOSINOPHILS 4.2 %; HEMATOCRIT 36.6 % (42.0-52.0); HEMOGLOBIN 12.5 gm/dL (14.0-18.0); LYMPHOCYTES 26.7 %; MCHC 34.1 g/dL (28.0-37.0); MONOCYTES 9.8 %; MPV 8.6 fl. (7.2-11.1); NUCLEATED RBCS 0 /100WBC; PLATELET COUNT* 283 thou/uL (150-400); POLYS 58.4 %; RBC 4.31 mil/uL (4.50-6.00); RDW-CV 17.6 % (10.5-14.5); WBC 6.8 thou/uL (4.0-11.0)
[2019-10-31 02:13] LABS: CALCIUM 8.7 mg/dL (8.5-10.1); CREATININE 1.3 mg/dL (0.6-1.3); POTASSIUM 3.8 mmol/L (3.5-5.1)
[2019-10-31 02:23] LABS: ALBUMIN 3.5 g/dL (3.4-5.0); MAGNESIUM 1.8 mg/dL (1.8-2.4); TOTAL BILIRUBIN 0.4 mg/dL (<0.1-1.0); TOTAL PROTEIN 7.8 g/dL (6.4-8.2)
[2019-10-31 02:32] LABS: INR 1.6; PROTIME 16.4 Seconds (9.20-11.50)
[2019-10-31 02:49] LABS: URINE BILIRUBIN NEGATIVE (Negative); URINE BLOOD NEGATIVE (Negative); URINE CLARITY CLEAR; URINE COLOR STRAW; URINE GLUCOSE-RANDOM NEGATIVE (Negative); URINE KETONES NEGATIVE (Negative); URINE LEUKOCYTES-REFLEX NEGATIVE (Negative); URINE NITRITE-REFLEX NEGATIVE (Negative); URINE PROTEIN NEGATIVE (Negative); URINE UROBILINOGEN 0.2 E.U./dl (0.2-1.0)
[2019-10-31 05:02] VITALS: BP 125/67
--- NOTE | 2019-10-31 10:14 | EKG ---
[place] [address] ELECTROCARDIOGRAM REPORT Name: JOSEELIANERUPA HARTLEY Room: [facility]#: [id number] Admission: 10/31/19 Attend Phys: Discharge: 10/31/19 Date of : 62 Date of Service: 10/31/19 0124 Report #: [id number] THIS REPORT FOR: //name// [facility] ED Test Date: 2019-10-31 Test Time: 01:24:49 Pat Name: ELIANE GARCIA Department: Room: Gender: Director Check: JAELYN : 1960 Requested By: Ellen Alexander Order Number: [id number] MD: Jorge Brown Measurements Intervals [place] Rate: 75 P: 6 [place]: 167 QRS: -11 QRSD: 101 T: 6 QT: 384 QTc: 429 Interpretive Statements Sinus rhythm Compared to ECG 04/09/2016 10:31:37 No significant changes Electronically Signed On 10-31-2019 10:12:48 CDT by Jorge Brown [email or web address] <ELECTRONICALLY SIGNED> By: Jorge Brown MD, [facility] 10/31/19 1012 0124 0124 Jorge Brown MD, [facility] /EPI
== END 2019-10-31 05:05 | disposition home or self-care (01) ==
LOC: M.ERS 01:24
PROVIDERS: Emergency Medicine
DX: R00.2 Palpitations (principal); R53.1 Weakness; E11.9 Type 2 diabetes mellitus without complications; I10 Essential (primary) hypertension; E78.5 Hyperlipidemia, unspecified; J45.909 Unspecified asthma, uncomplicated; I25.10 Atherosclerotic heart disease of native coronary artery without angina pectoris; Z89.431 Acquired absence of right foot; Z86.711 Personal history of pulmonary embolism; Z79.82 Long term (current) use of aspirin; Z79.4 Long term (current) use of insulin; Z79.899 Other long term (current) drug therapy